=== PATIENT | female | born 1935 | race Caucasian/White ===

== ENCOUNTER 2016-11-01 21:49 | Emergency (ER) | payer MEDICARE, MEDICAID ==
[~2016-11-01] VITALS: Ht 154.9 cm; Wt 73.0 kg
[~2016-11-01 21:49] MED LIST: AMLO2.5T45 PO; ASPI-1035 PO; CELE200C PO; IOHEXOL-300 100 ML BOTTLE ONE; LEVO250T2 PO; LORA-249 PO; LORA-250 PO; OMEP20CA10 PO; OMEP20CA4 PO; PROP10DR4 BOTHEYE; PROP20TA PO; Polyvinyl Alcohol OP; QVAR; SODIUM CHLORIDE 0.9% 10ML VIAL ONE; TAP5 PO; Tramadol Hcl PO
[2016-11-01] MEDS ORDERED: ONDANSETRON HCL 4MG/2ML VIAL IV STA (22:34)
[2016-11-01] MEDS ORDERED: SODIUM CHLORIDE 0.9% 1,000 ML IV ONE (22:34)
[2016-11-01 22:56] LABS: BASOPHILS % 1.1 % (0.0-2.0); EOSINOPHILS % 3.7 % (0.0-5.0); HEMATOCRIT. 37.9 % (36.0-48.0); HEMOGLOBIN. 12.9 g/dL (12.0-16.0); LYMPHOCYTES % 32.8 % (20.0-50.0); MEAN CORPUSCULAR HEMOGLOBIN 30.8 pg (28.0-32.0); MEAN CORPUSCULAR HGB CONC 33.9 g/dL (31.0-37.0); MEAN CORPUSCULAR VOLUME 90.9 fL (81.0-99.0); MONOCYTES % 5.7 % (2.0-8.0); NEUTROPHILS % 56.7 % (40.0-76.0); PLATELET 269 x1000/uL (130-400); RED BLOOD CELL COUNT 4.18 mill/uL (4.2-5.4); WHITE BLOOD COUNT 9.6 x1000/uL (4.5-11.0)
[2016-11-01 22:59] LABS: CHLORIDE 105 mEq/L (98-107); INDEX HEMOLYSI 1 (1-3); INDEX ICTERIC 1 (1-4); INDEX LIPEMIC 1 (1-3)
[2016-11-01 23:02] LABS: ALBUMIN 3.8 g/dL (3.4-5.0); ANION GAP 13; CALCIUM 8.9 mg/dL (8.5-10.1); CARBON DIOXIDE 28 mEq/L (21-32); LIPASE 176 IU/L (73-393); PROTHROMBIN TIME 10.7 sec; UREA NITROGEN BLOOD 16 mg/dL (7-21)
[2016-11-01 23:06] LABS: ALANINE AMINOTRANSFERASE 19 IU/L (13-61); eGFR > 60 mL/min (>60)
[2016-11-01] MEDS ORDERED: MORPHINE SULFATE 4 MG/ML CPJ (NOT FOR IM USE) IV ONE (23:15)
[2016-11-01 23:44] LABS: CLARITY URINE CLEAR (CLEAR); COLOR URINE YELLOW (YELLOW); GLUCOSE URINE NEGATIVE (NEGATIVE); KETONES URINE NEGATIVE (NEGATIVE); LEUKOCYTE ESTERASE URINE 2+ (NEGATIVE); NITRITE URINE NEGATIVE (NEGATIVE); OCCULT BLOOD URINE TRACE (NEGATIVE); PH URINE 6.5 (4.5-8.0); PROTEIN URINE NEGATIVE (NEGATIVE); UROBILINOGEN URINE 0.2 E.U./dL (0.2-1.0)
[2016-11-02] MEDS ORDERED: POTASSIUM CHLORIDE 20MEQ TABLET SR PO ONE (00:08)
[2016-11-02 01:18] LABS: SQUAMOUS EPITHELIAL CELL URINE FEW /lpf (RARE/1+)
[2016-11-02 01:19] LABS: WBC URINE 15-25 /hpf (0-2)
[2016-11-02 01:20] LABS: RBC URINE 0-2 /hpf (0-2)
[2016-11-02 01:21] LABS: BACTERIA URINE TRACE
[2016-11-02 02:15] VITALS: BP 122/56
== END 2016-11-02 02:30 | disposition home or self-care (01) ==
LOC: ER 21:49
DX: R10.13 Epigastric pain (principal); M19.90 Unspecified osteoarthritis, unspecified site; R19.7 Diarrhea, unspecified; R11.10 Vomiting, unspecified; F41.9 Anxiety disorder, unspecified; I10 Essential (primary) hypertension; Z79.82 Long term (current) use of aspirin; Z88.5 Allergy status to narcotic agent; Z90.49 Acquired absence of other specified parts of digestive tract
CPT/HCPCS: 36415; 74177; 80053; 81001; 83690; 85025; 85610; 96361; 96374; 96375; 99285; A4216; J2270; J2405; J7040; Q9967; J7030

== ENCOUNTER → 2017-03-05 | Outpatient (CLI) | payer MEDICARE, MEDICAID ==
[~2017-03-05] MED LIST changes: -ASPI-1035 PO; +ASPI-1158 PO; -IOHEXOL-300 100 ML BOTTLE ONE; -SODIUM CHLORIDE 0.9% 10ML VIAL ONE
== END | disposition home or self-care (01) ==
LOC: MAMMO 09:28
PROVIDERS: ATTEND Obstetrics & Gynecology Obstetrics
DX: Z12.31 Encounter for screening mammogram for malignant neoplasm of breast (principal)
CPT/HCPCS: G0202

== ENCOUNTER 2017-05-09 15:46 | Emergency (ER) | payer MEDICARE, MEDICAID ==
[~2017-05-09] VITALS: Ht 154.9 cm; Wt 74.0 kg
[2017-05-09] MEDS ORDERED: TRIA1TAB94 PO (16:01)
[2017-05-09] MEDS ORDERED: FURO-152 PO (16:01)
[2017-05-09] MEDS ORDERED: ATEN-42 PO (16:01)
[2017-05-09] MEDS ORDERED: SODIUM CHLORIDE 0.9% 1,000 ML IV ONE (16:27)
[2017-05-09] MEDS ORDERED: MORPHINE SULFATE 4 MG/ML CPJ (NOT FOR IM USE) IV STA (16:27)
[2017-05-09] MEDS ORDERED: ONDANSETRON HCL 4MG/2ML VIAL IV STA (16:27)
[2017-05-09] MEDS ORDERED: FAMOTIDINE 20MG/2ML VIAL IV STA (16:27)
[2017-05-09 16:59] LABS: CLARITY URINE CLEAR (CLEAR); COLOR URINE YELLOW (YELLOW); GLUCOSE URINE NEGATIVE (NEGATIVE); KETONES URINE NEGATIVE (NEGATIVE); LEUKOCYTE ESTERASE URINE 2+ (NEGATIVE); NITRITE URINE NEGATIVE (NEGATIVE); OCCULT BLOOD URINE NEGATIVE (NEGATIVE); PH URINE 6.5 (4.5-8.0); PROTEIN URINE NEGATIVE (NEGATIVE); SPECIFIC GRAVITY URINE 1.005 (1.005-1.030); UROBILINOGEN URINE 0.2 E.U./dL (0.2-1.0)
[2017-05-09 17:51] LABS: BASOPHILS % 0.6 % (0.0-2.0); EOSINOPHILS % 1.9 % (0.0-5.0); HEMOGLOBIN. 13.1 g/dL (12.0-16.0); LYMPHOCYTES % 37.1 % (20.0-50.0); MEAN CORPUSCULAR HEMOGLOBIN 31.6 pg (28.0-32.0); MEAN CORPUSCULAR VOLUME 91.6 fL (81.0-99.0); MEAN PLATELET VOLUME 9.2 fl (7.4-10.4); MONOCYTES % 5.7 % (2.0-8.0); NEUTROPHILS % 54.7 % (40.0-76.0); PLATELET 274 x1000/uL (130-400); RED BLOOD CELL COUNT 4.15 mill/uL (4.2-5.4); RED CELL DISTRIBUTION WIDTH 13.5 % (11.6-14.6)
[2017-05-09 18:04] LABS: CARBON DIOXIDE 26 mEq/L (21-32); CHLORIDE 107 mEq/L (98-107)
[2017-05-09 22:18] VITALS: BP 122/70
== END 2017-05-10 10:08 | disposition home or self-care (01) ==
LOC: ER 22:45
DX: N39.0 Urinary tract infection, site not specified (principal); K29.70 Gastritis, unspecified, without bleeding; I11.0 Hypertensive heart disease with heart failure; Z90.710 Acquired absence of both cervix and uterus; Z90.49 Acquired absence of other specified parts of digestive tract; Z88.6 Allergy status to analgesic agent
CPT/HCPCS: 36415; 74176; 80053; 81001; 83690; 85025; 93005; 99285; J2270; J2405; J3490; J7030

== ENCOUNTER 2017-09-27 14:04 | Emergency (ER) | payer MEDICARE, MEDICAID ==
[~2017-09-27] VITALS: Ht 154.9 cm; Wt 69.0 kg
[~2017-09-27 14:04] MED LIST changes: +ATEN-42 PO; +FURO-152 PO; +TRIA1TAB94 PO
[2017-09-27] MEDS ORDERED: KETOROLAC 60MG/2ML VIAL IM STA (15:08)
[2017-09-27 16:15] VITALS: BP 141/69
== END 2017-09-27 16:00 | disposition home or self-care (01) ==
LOC: ER 14:37
DX: I11.0 Hypertensive heart disease with heart failure (principal); R00.1 Bradycardia, unspecified; I50.9 Heart failure, unspecified; Z79.82 Long term (current) use of aspirin; Z86.73 Personal history of transient ischemic attack (TIA), and cerebral infarction without residual deficits; Z87.891 Personal history of nicotine dependence; Z88.5 Allergy status to narcotic agent
CPT/HCPCS: 93005; 96372; 99283; J1885

== ENCOUNTER 2018-05-18 17:27 | Emergency (ER) | payer MEDICARE, MEDICAID ==
[~2018-05-18] VITALS: Ht 154.9 cm; Wt 71.0 kg
[~2018-05-18 17:27] MED LIST changes: -PROP20TA PO; +PROP20TA19 PO
[2018-05-18 17:32] VITALS: BP 163/69
== END 2018-05-18 20:41 | disposition left against medical advice (07) ==
LOC: ER 17:27
DX: R10.13 Epigastric pain (principal); I11.0 Hypertensive heart disease with heart failure; I50.9 Heart failure, unspecified; Z86.73 Personal history of transient ischemic attack (TIA), and cerebral infarction without residual deficits; Z90.49 Acquired absence of other specified parts of digestive tract; Z90.710 Acquired absence of both cervix and uterus; Z98.890 Other specified postprocedural states; Z53.21 Procedure and treatment not carried out due to patient leaving prior to being seen by health care provider

== ENCOUNTER 2021-07-07 23:15 | Emergency (ER) | payer MEDICARE, MEDICAID ==
[~2021-07-07] VITALS: Ht 157.5 cm; Wt 70.0 kg
[~2021-07-07 23:15] MED LIST changes: -ASPI-1158 PO; +ASPI-1406 PO; -OMEP20CA10 PO; +OMEP20CA14 PO
[2021-07-08] MEDS ORDERED: MORPHINE SULFATE 4 MG/ML CPJ (NOT FOR IM USE) IV STA (02:50)
[2021-07-08] MEDS ORDERED: ONDANSETRON HCL 4MG/2ML INJ IV STA (02:50)
[2021-07-08 03:07] LABS: EOSINOPHILS % 3.6 % (0.0-5.0); HEMATOCRIT. 37.8 % (36.0-48.0); HEMOGLOBIN. 12.6 g/dL (12.0-16.0); LYMPHOCYTES % 36.3 % (20.0-50.0); MEAN CORPUSCULAR HEMOGLOBIN 29.2 pg (28.0-32.0); MEAN CORPUSCULAR VOLUME 87.7 fL (81.0-99.0); MEAN PLATELET VOLUME 8.5 fl (7.4-10.4); MONOCYTES % 6.2 % (2.0-8.0); NEUTROPHILS % 52.9 % (40.0-76.0); PLATELET 694 x1000/uL (130-400); RED BLOOD CELL COUNT 4.31 mill/uL (4.2-5.4); RED CELL DISTRIBUTION WIDTH 15.2 % (11.6-14.6)
[2021-07-08 03:16] LABS: CHLORIDE 104 mEq/L (98-107)
[2021-07-08] MEDS ORDERED: IBUPROFEN 600MG TABLET PO ONE (04:15)
[2021-07-08] MEDS ORDERED: HYDR-4001 MT (04:46)
[2021-07-08 06:00] VITALS: BP 134/60
== END 2021-07-08 06:00 | disposition home or self-care (01) ==
LOC: ER 23:15
DX: M17.12 Unilateral primary osteoarthritis, left knee (principal); I11.0 Hypertensive heart disease with heart failure; I50.9 Heart failure, unspecified; J98.11 Atelectasis; Z96.651 Presence of right artificial knee joint
CPT/HCPCS: 36415; 71045; 73562; 80053; 85025; 93971; 96374; 96375; 99285; J2270; J2405

== ENCOUNTER 2025-02-11 15:22 | Emergency (ER) | payer MEDICARE, MEDICAID ==
[~2025-02-11] VITALS: Ht 160 cm; Wt 60.7 kg
[~2025-02-11 15:22] MED LIST changes: +CEL200 PO; -CELE200C PO; +HYDR-4001 MT; +METH-371 PO; -TAP5 PO
[2025-02-11 15:31] VITALS: TEMP 36.8; O2SAT 96
[2025-02-11 15:39] VITALS: O2SAT 98
[2025-02-11 20:00] VITALS: BP 165/83; PULSE 88; RESP 18
[2025-02-11] MEDS: KETOROLAC 15MG/ML VIAL IM ONE (20:00)
[2025-02-11] MEDS: ACETAMINOPHEN 325MG TABLET PO ONE (20:00)
== END 2025-02-11 21:01 | disposition home or self-care (01) ==
LOC: ER 16:08
DX: M54.9 Dorsalgia, unspecified (principal); I11.0 Hypertensive heart disease with heart failure; I50.9 Heart failure, unspecified; Z79.1 Long term (current) use of non-steroidal anti-inflammatories (NSAID); Z79.51 Long term (current) use of inhaled steroids; Z79.82 Long term (current) use of aspirin; Z79.899 Other long term (current) drug therapy; Z88.5 Allergy status to narcotic agent; Z90.49 Acquired absence of other specified parts of digestive tract; Z90.710 Acquired absence of both cervix and uterus
CPT/HCPCS: 99283; 96372; J1885